=== PATIENT | male | born 1980 | race Caucasian/White ===

== ENCOUNTER 2016-11-06 21:30 | Emergency (ER) | payer SELFPAY ==
[~2016-11-06] VITALS: Ht 180.3 cm; Wt 110.0 kg
[2016-11-06] MEDS ORDERED: DIAZEPAM 5 MG TABLET ONE (21:58)
[2016-11-06] MEDS ORDERED: CYCLOBENZAPRINE 10 MG TABLET ONE (21:58)
[2016-11-06] MEDS ORDERED: HYDROmorphone 1 MG/ML, 1ML ONE (21:58)
[2016-11-06] MEDS ORDERED: KETOROLAC 30 MG/1 ML ONE (21:58)
[2016-11-06] MEDS ORDERED: HYDROmorphone 1 MG/ML, 1ML IM ONE (22:00)
[2016-11-06] MEDS ORDERED: KETOROLAC 30 MG/1 ML IM ONE (22:00)
[2016-11-06] MEDS ORDERED: CYCLOBENZAPRINE 10 MG TABLET PO ONE (22:00)
[2016-11-06] MEDS ORDERED: DIAZEPAM 5 MG/ML, 2ML IM ONE (22:00)
[2016-11-06 23:29] VITALS: BP 120/70
== END 2016-11-06 23:49 | disposition home or self-care (01) ==
LOC: ED 23:43
DX: M54.42 Lumbago with sciatica, left side (principal)
CPT/HCPCS: 72110; 73502; 96372; 99284; J1170; J1885